=== PATIENT | male | born 1950 | race Caucasian/White ===

== ENCOUNTER 2018-01-09 09:58 | Day surgery (SDC) | payer MEDICARE, BC ==
[~2018-01-09] VITALS: Ht 182.9 cm; Wt 90.6 kg
[2018-01-09] VITALS (7 sets, daily range): BP systolic 112–152; BP diastolic 59–78
[2018-01-09] MEDS ORDERED: sod bicarbonate 150mEq in D5W 1,150 ML IV ONE (10:35)
[2018-01-09] MEDS ORDERED: diphenhydrAMINE 25mg capsule PO PRN (10:35)
[2018-01-09] MEDS ORDERED: FURO-150 PO (10:36)
[2018-01-09] MEDS ORDERED: LISI10TA4 PO (10:36)
[2018-01-09] MEDS ORDERED: TRAM300C3 PO (10:36)
[2018-01-09] MEDS ORDERED: ASPI-1265 PO (10:36)
[2018-01-09] MEDS ORDERED: CARV-50 PO (10:36)
[2018-01-09] MEDS ORDERED: PREG150C PO (10:36)
[2018-01-09] MEDS ORDERED: ATOR40TA PO (10:36)
[2018-01-09] MEDS ORDERED: CLOP75TA35 PO (10:36)
[2018-01-09] MEDS ORDERED: TEMA30CA PO (10:36)
[2018-01-09] MEDS ORDERED: POTA10TA19 PO (10:36)
[2018-01-09 11:23] LABS: BASOPHILS # (AUTO) 0.1 X10'3 (0-0.2); BASOPHILS % (AUTO) 0.6 % (0-1); EOSINOPHILS # (AUTO) 0.5 X10'3 (0-0.9); EOSINOPHILS % (AUTO) 4.1 % (0-6); HEMATOCRIT 40.7 % (42.0-52.0); HEMOGLOBIN 13.6 g/dl (14.0-17.9); LYMPHOCYTES # (AUTO) 2.2 X10'3 (1.1-4.8); LYMPHOCYTES % (AUTO) 19.4 % (21-51); MEAN CORPUSCULAR HGB CONC 33.3 % (33.0-36.5); MEAN CORPUSCULAR VOLUME 93.1 FL (78-98); MEAN PLATELET VOLUME 8.1 FL (7.4-10.4); MONOCYTES # (AUTO) 0.9 X10'3 (0-0.9); MONOCYTES % (AUTO) 7.6 % (2-12); NEUTROPHILS # (AUTO) 7.6 X10'3 (1.8-7.7); NEUTROPHILS % (AUTO) 68.3 % (42-75); PLATELET COUNT 256 X10'3 (140-440); RED BLOOD COUNT 4.38 X10'6 (4.70-6.10); RED CELL DISTRIBUTION WIDTH 14.7 % (11.5-14.5); WHITE BLOOD COUNT 11.2 X10'3 (4.5-11.0)
[2018-01-09 11:47] LABS: CHLORIDE 106 MMOL/L (99-107); TOTAL CARBON DIOXIDE 25.3 MMOL/L (24-32)
[2018-01-09 11:55] LABS: ALBUMIN 3.3 G/DL (3.4-5.0); ANION GAP 12 (8-16); BLOOD UREA NITROGEN 25 MG/DL (7-18); BUN/CREATININE RATIO 17.9 (5.4-32.0); CALCIUM 8.4 MG/DL (8.5-10.1); GLUCOSE 99 MG/DL (70-104); MAGNESIUM 1.8 MG/DL (1.5-2.4); POTASSIUM 4.5 MMOL/L (3.5-5.1); SODIUM 143 MMOL/L (135-145); eGFR 50 ML/MIN
[2018-01-09] MEDS ORDERED: fentaNYL/PF 50MCG/1 ML 2ML syringe ONE ×2 (12:42→14:00)
[2018-01-09] MEDS ORDERED: vancomycin 1,000mg inj ONE ×2 (12:43→12:57)
[2018-01-09] MEDS ORDERED: midazolam 2 mg/2 ml injection ONE ×3 (12:43→13:51)
[2018-01-09] MEDS ORDERED: cefazolin/dext.iso 2gm/50ml 50 ML IV ONE (12:43)
[2018-01-09] MEDS ORDERED: lidocaine 1%/epinephrine 1:100,000 injection 50ml vial ONE (12:44)
[2018-01-09] MEDS ORDERED: proCHLORperazine 10 MG/2 ml inj ONE (13:54)
[2018-01-09] MEDS ORDERED: iohexol 350 MG/ML 50ML vial IV ONE ×2 (14:16→14:26)
[2018-01-09] MEDS ORDERED: atropine 0.1mg/ml 10ml syringe ONE (14:39)
== END 2018-01-09 18:15 | disposition home or self-care (01) ==
LOC: SSTAY O 09:58
PROVIDERS: ATTEND Internal Medicine Cardiovascular Disease
DX: I25.5 Ischemic cardiomyopathy (principal); I44.7 Left bundle-branch block, unspecified; I25.10 Atherosclerotic heart disease of native coronary artery without angina pectoris; E78.5 Hyperlipidemia, unspecified; I11.0 Hypertensive heart disease with heart failure; I50.9 Heart failure, unspecified; Z87.891 Personal history of nicotine dependence; Z98.52 Vasectomy status; Z98.49 Cataract extraction status, unspecified eye; Z95.5 Presence of coronary angioplasty implant and graft; Z79.891 Long term (current) use of opiate analgesic; Z79.82 Long term (current) use of aspirin; Z79.899 Other long term (current) drug therapy; Z98.890 Other specified postprocedural states; Z82.49 Family history of ischemic heart disease and other diseases of the circulatory system
CPT/HCPCS: 33225; 33249; 36415; 71045; 80048; 83735; 85025; 85610; 93005; 99152; 99153; A4565; C1769; C1777; C1882; C1887; C1898; C1900; J0690; J0780; J2250; J3010; J3370; J3490; Q0163; Q9967; A4620; J0461

== ENCOUNTER 2022-11-25 08:02 | Day surgery (SDC) | payer MEDICARE, BC ==
[~2022-11-25] VITALS: Ht 182.9 cm; Wt 101.4 kg
[2022-11-25] VITALS (10 sets, daily range): BP systolic 113–179; BP diastolic 67–94; PULSE 76–96; RESP 14–16; TEMP 97.8; O2SAT 95–100
[~2022-11-25 08:02] MED LIST: ASPI-1265 PO; ATOR40TA PO; CARV-50 PO; CLOP75TA34 PO; FURO-150 PO; LISI10TA27 PO; POTA-192 PO; PREG150C PO; TEMA30CA PO; TRAM300C3 PO
[2022-11-25] MEDS ORDERED: diphenhydrAMINE 25mg capsule PO PRN (08:30)
[2022-11-25] MEDS ORDERED: normal saline 1,000 ML IV SCH (08:30)
[2022-11-25] MEDS ORDERED: FURO40TA4 PO (08:32)
[2022-11-25] MEDS ORDERED: ROSU40TA22 PO (08:32)
[2022-11-25] MEDS ORDERED: TRAM50TA2 PO (08:32)
[2022-11-25] MEDS ORDERED: PROM25TA14 PO (08:33)
[2022-11-25] MEDS ORDERED: RIVA20TA PO (08:33)
[2022-11-25] MEDS ORDERED: SACU1TAB7 PO (08:33)
[2022-11-25 09:18] LABS: BASOPHILS % (AUTO) 0.2 % (0-1); EOSINOPHILS # (AUTO) 0.6 X10'3 (0-0.9); EOSINOPHILS % (AUTO) 4.9 % (0-6); HEMOGLOBIN 13.6 g/dl (14.0-17.9); LYMPHOCYTES # (AUTO) 3.7 X10'3 (1.1-4.8); LYMPHOCYTES % (AUTO) 33.1 % (21-51); MEAN CORPUSCULAR HGB CONC 33.2 g/dL (33.0-36.5); MEAN CORPUSCULAR VOLUME 90.3 FL (78-98); MEAN PLATELET VOLUME 7.7 FL (7.4-10.4); MONOCYTES # (AUTO) 1.3 X10'3 (0-0.9); MONOCYTES % (AUTO) 11.4 % (2-12); NEUTROPHILS # (AUTO) 5.6 X10'3 (1.8-7.7); NEUTROPHILS % (AUTO) 50.4 % (42-75); PLATELET COUNT 292 X10'3 (140-440); RED BLOOD COUNT 4.54 X10'6 (4.70-6.10); RED CELL DISTRIBUTION WIDTH 16.3 % (11.5-14.5); WHITE BLOOD COUNT 11.2 X10'3 (4.5-11.0)
[2022-11-25 09:26] LABS: INR 0.9 INR; PROTHROMBIN TIME 10.1 SECONDS (9.0-12.0)
[2022-11-25 10:28] LABS: ALBUMIN 3.1 G/DL (3.4-5.0); ANION GAP 7 (8-16); BLOOD UREA NITROGEN 13 MG/DL (7-18); BUN/CREATININE RATIO 11.3 (10.0-20.0); CALCIUM 8.9 MG/DL (8.5-10.1); CHLORIDE 106 MMOL/L (99-107); CREATININE 1.15 MG/DL (0.60-1.10); GLUCOSE 99 MG/DL (70-104); MAGNESIUM 2.1 MG/DL (1.5-2.4); POTASSIUM 4.2 MMOL/L (3.5-5.1); SODIUM 140 MMOL/L (135-145); TOTAL CARBON DIOXIDE 26.8 MMOL/L (24-32); eCRCL 63 ML/MIN; eGFR 62 ML/MIN
[2022-11-25] MEDS ORDERED: iohexol 350 MG/ML 50ML vial IV ONE (10:47)
[2022-11-25] MEDS ORDERED: midazolam 1 mg/ML 2ml injection ONE ×2 (10:47→11:25)
[2022-11-25] MEDS ORDERED: heparin 1,000unit/ml 10ml vial 10 ML ONE (10:47)
[2022-11-25] MEDS ORDERED: LIDOcaine 1% (10mg/ml)w/preservative inj. 20ml MDV ONE (10:47)
[2022-11-25] MEDS ORDERED: fentaNYL/PF 50MCG/1 ML 2ML syringe ONE (10:47)
[2022-11-25] MEDS ORDERED: iohexol 350MG/ML 100ml bottle IV ONE ×2 (10:48→11:46)
[2022-11-25] MEDS ORDERED: verapamil 2.5 mg/ml inj IV ONE (10:53)
[2022-11-25] MEDS ORDERED: nitroGLYCERIN 500mcg/5mL D5W 5 ML IV ONE (10:55)
[2022-11-25] MEDS ORDERED: proCHLORperazine 10 MG/2 ml inj ONE (11:49)
[2022-11-25] MEDS ORDERED: protamine sulfate 10mg/ml inj. ONE (12:28)
[2022-11-25] MEDS ORDERED: hydrALAZINE 20mg/ml inj. IV ONE (12:35)
[2022-11-25] MEDS ORDERED: enalaprilat dihydrate 2.5mg/2ml vial IV ONE ×2 (12:38→12:44)
[2022-11-25] MEDS ORDERED: clopidogrel 300mg tablet ONE (12:58)
[2022-11-25] MEDS ORDERED: HYDROcodone/acetaminophen 10/325mg tab PO PRN (13:25)
[2022-11-25] MEDS ORDERED: proCHLORperazine 10 MG/2 ml inj IV PRN (13:25)
[2022-11-25] MEDS ORDERED: HYDROcodone/acetaminophen 5mg/325mg tablet PO PRN (13:25)
[2022-11-25] MEDS ORDERED: ondansetron/PF 4mg/2ml inj IV PRN (13:25)
[2022-11-25] MEDS ORDERED: normal saline 1000ml 1,000 ML IV SCH (13:25)
[2022-11-25] MEDS ORDERED: cloNIDine 0.1 mg tablet PO ONE (13:50)
== END 2022-11-25 17:10 | disposition home or self-care (01) ==
LOC: SSTAY O 08:02
PROVIDERS: ATTEND Internal Medicine Cardiovascular Disease
DX: I25.118 Atherosclerotic heart disease of native coronary artery with other forms of angina pectoris (principal); I25.5 Ischemic cardiomyopathy; I44.7 Left bundle-branch block, unspecified; E78.5 Hyperlipidemia, unspecified; I10 Essential (primary) hypertension; Z95.810 Presence of automatic (implantable) cardiac defibrillator; Z95.5 Presence of coronary angioplasty implant and graft; Z79.01 Long term (current) use of anticoagulants; Z79.899 Other long term (current) drug therapy
CPT/HCPCS: 36415; 80048; 83735; 85025; 85610; 93005; 93308; 93458; 99152; 99153; C1874; C9600; J0360; J0780; J1644; J2250; J2720; J3010; J3490; J7030; Q0163; Q9967; A6258; A6449; C1725; C1751; C1760; C1769; C1892; C1894

== ENCOUNTER 2023-12-01 06:41 | Day surgery (SDC) | payer MEDICARE, BC ==
[~2023-12-01] VITALS: Ht 182.9 cm; Wt 100.9 kg
[2023-12-01] VITALS (10 sets, daily range): BP systolic 112–154; BP diastolic 59–78; PULSE 60–64; RESP 14–16; TEMP 97.9; O2SAT 94–98
[~2023-12-01 06:41] MED LIST changes: -ATOR40TA PO; +DIPH25CA83 PO; -FURO-150 PO; +FURO40TA4 PO; +HYDR-3972 PO; +KETO15CR2 TOP; -LISI10TA27 PO; +MELA10TA2 PO; +PROM25TA14 PO; +RIVA20TA PO; +ROSU40TA71 PO; +SACU1TAB7 PO; -TEMA30CA PO; -TRAM300C3 PO; +TRAM50TA2 PO
[2023-12-01 07:46] LABS: BASOPHILS # (AUTO) 0.1 X10'3 (0-0.2); BASOPHILS % (AUTO) 0.6 % (0-1); EOSINOPHILS # (AUTO) 0.9 X10'3 (0-0.9); EOSINOPHILS % (AUTO) 8.8 % (0-6); HEMATOCRIT 37.9 % (42.0-52.0); HEMOGLOBIN 12.4 g/dl (14.0-17.9); LYMPHOCYTES # (AUTO) 2.9 X10'3 (1.1-4.8); LYMPHOCYTES % (AUTO) 29.3 % (21-51); MEAN CORPUSCULAR HEMOGLOBIN 29.1 PG (27.0-31.0); MEAN CORPUSCULAR HGB CONC 32.7 g/dL (33.0-36.5); MEAN PLATELET VOLUME 7.8 FL (7.4-10.4); MONOCYTES % (AUTO) 9.7 % (2-12); NEUTROPHILS % (AUTO) 51.6 % (42-75); PLATELET COUNT 308 X10'3 (140-440); RED BLOOD COUNT 4.26 X10'6 (4.70-6.10); RED CELL DISTRIBUTION WIDTH 15.4 % (11.5-14.5); WHITE BLOOD COUNT 9.8 X10'3 (4.5-11.0)
[2023-12-01] MEDS: sodium bicarbonate 1meq/ml syr 150 ML in dextrose 5%-water 1,000 ML IV ONE (07:58)
[2023-12-01] MEDS: diphenhydrAMINE 25mg capsule PO PRN (07:58)
[2023-12-01] MEDS: normal saline 1,000 ML IV SCH (07:58)
[2023-12-01 08:25] LABS: PROTHROMBIN TIME 10.6 SECONDS (9.0-12.0)
[2023-12-01 08:26] LABS: ALBUMIN 3.1 G/DL (3.4-5.0); ANION GAP 13 (8-16); BLOOD UREA NITROGEN 19 MG/DL (7-18); BUN/CREATININE RATIO 11.4 (10.0-20.0); CALCIUM 8.7 MG/DL (8.5-10.1); CHLORIDE 108 MMOL/L (99-107); CREATININE 1.67 MG/DL (0.60-1.10); GLUCOSE 91 MG/DL (70-104); POTASSIUM 3.8 MMOL/L (3.5-5.1); SODIUM 145 MMOL/L (135-145); TOTAL CARBON DIOXIDE 23.6 MMOL/L (24-32); eCRCL 43 ML/MIN; eGFR 40 ML/MIN
[2023-12-01] MEDS ORDERED: LIDOcaine 1% (10mg/ml) 2ml vial ONE (08:39)
[2023-12-01] MEDS ORDERED: verapamil 2.5 mg/ml inj IV ONE (08:40)
[2023-12-01] MEDS ORDERED: fentaNYL/PF 50MCG/1 ML 2ML syringe ONE (08:40)
[2023-12-01] MEDS ORDERED: heparin 1,000unit/ml 10ml vial 10 ML ONE (08:40)
[2023-12-01] MEDS ORDERED: midazolam 1 mg/ML 2ml injection ONE ×2 (08:40→09:43)
[2023-12-01] MEDS ORDERED: iohexol 350 MG/ML 50ML vial IV ONE (08:40)
[2023-12-01] MEDS ORDERED: iohexol 350MG/ML 100ml bottle IV ONE (08:40)
[2023-12-01] MEDS ORDERED: nitroGLYCERIN 500mcg/5mL D5W 5 ML IV ONE (08:41)
[2023-12-01] MEDS ORDERED: LIDOcaine 1% 30ml preserv. free vial ONE (09:02)
== END 2023-12-01 13:55 | disposition home or self-care (01) ==
LOC: SSTAY O 06:41
PROVIDERS: ATTEND Internal Medicine Cardiovascular Disease
DX: I25.118 Atherosclerotic heart disease of native coronary artery with other forms of angina pectoris (principal); I10 Essential (primary) hypertension; E78.5 Hyperlipidemia, unspecified; I25.5 Ischemic cardiomyopathy; Z79.01 Long term (current) use of anticoagulants; Z79.02 Long term (current) use of antithrombotics/antiplatelets; Z79.899 Other long term (current) drug therapy; Z98.49 Cataract extraction status, unspecified eye; Z95.810 Presence of automatic (implantable) cardiac defibrillator; Z98.890 Other specified postprocedural states
CPT/HCPCS: 36415; 80048; 83735; 85025; 85610; 93005; 93458; 99152; 99153; A6258; A6402; C1725; C1894; J1644; J2001; J2250; J3010; J3490; J7030; J7070; Q0163; Q9967; Z7610

== ENCOUNTER 2024-01-19 08:57 | Day surgery (SDC) | payer MEDICARE, BC ==
[~2024-01-19] VITALS: Ht 182.9 cm; Wt 100.7 kg
[2024-01-19] VITALS (8 sets, daily range): BP systolic 133–164; BP diastolic 59–91; PULSE 65–94; RESP 16–18; TEMP 97.6; O2SAT 94–97
[~2024-01-19 08:57] MED LIST changes: -ASPI-1265 PO; -DIPH25CA83 PO; -HYDR-3972 PO; -KETO15CR2 TOP; -MELA10TA2 PO; -POTA-192 PO; -ROSU40TA71 PO; +ROSU40TA89 PO
[2024-01-19 09:55] LABS: BASOPHILS # (AUTO) 0.1 X10'3 (0-0.2); BASOPHILS % (AUTO) 0.8 % (0-1); EOSINOPHILS # (AUTO) 0.6 X10'3 (0-0.9); EOSINOPHILS % (AUTO) 8.3 % (0-6); HEMATOCRIT 36.8 % (42.0-52.0); HEMOGLOBIN 12.4 g/dl (14.0-17.9); LYMPHOCYTES # (AUTO) 2.1 X10'3 (1.1-4.8); LYMPHOCYTES % (AUTO) 27.1 % (21-51); MEAN CORPUSCULAR HEMOGLOBIN 29.8 PG (27.0-31.0); MEAN CORPUSCULAR HGB CONC 33.7 g/dL (33.0-36.5); MEAN CORPUSCULAR VOLUME 88.6 FL (78-98); MEAN PLATELET VOLUME 7.4 FL (7.4-10.4); MONOCYTES # (AUTO) 0.8 X10'3 (0-0.9); NEUTROPHILS # (AUTO) 4.2 X10'3 (1.8-7.7); NEUTROPHILS % (AUTO) 53.8 % (42-75); PLATELET COUNT 271 X10'3 (140-440); RED BLOOD COUNT 4.16 X10'6 (4.70-6.10); RED CELL DISTRIBUTION WIDTH 15.8 % (11.5-14.5); WHITE BLOOD COUNT 7.7 X10'3 (4.5-11.0)
[2024-01-19] MEDS ORDERED: ceFAZolin 2gm in dextrose, iso 50 ML IV ONE (09:55)
[2024-01-19 10:10] LABS: ALBUMIN 3.1 G/DL (3.4-5.0); ANION GAP 9 (8-16); BLOOD UREA NITROGEN 25 MG/DL (7-18); BUN/CREATININE RATIO 15.4 (10.0-20.0); CALCIUM 8.4 MG/DL (8.5-10.1); CHLORIDE 109 MMOL/L (99-107); CREATININE 1.62 MG/DL (0.60-1.10); GLUCOSE 130 MG/DL (70-104); MAGNESIUM 2.1 MG/DL (1.5-2.4); POTASSIUM 3.6 MMOL/L (3.5-5.1); SODIUM 142 MMOL/L (135-145); TOTAL CARBON DIOXIDE 24.2 MMOL/L (24-32); eCRCL 44 ML/MIN; eGFR 42 ML/MIN
[2024-01-19] MEDS: normal saline 1000ml 1,000 ML IV SCH (10:14)
[2024-01-19] MEDS: vancomycin 1,500 MG in NS 300ml IV soln IV ONE (10:15)
[2024-01-19] MEDS ORDERED: atropine 0.1mg/ml 10ml syringe ONE (16:14)
[2024-01-19] MEDS ORDERED: iohexol 350MG/ML 100ml bottle IV ONE (16:14)
[2024-01-19] MEDS ORDERED: heparin 1,000unit/ml 10ml vial 0 ML ONE (16:14)
[2024-01-19] MEDS ORDERED: phenylephrine 10mg/ml inj. -priapism dosing ONE (16:14)
[2024-01-19] MEDS ORDERED: DOPamine 400mg/D5W 250ml 0 ML IV ONE (16:15)
[2024-01-19] MEDS ORDERED: heparin 1,000 UNITS/NS 500ml 0 ML ONE (16:15)
[2024-01-19] MEDS ORDERED: LIDOcaine 1% 30ml preserv. free vial ONE (16:17)
[2024-01-19] MEDS ORDERED: fentaNYL/PF 50MCG/1 ML 2ML syringe ONE (16:40)
[2024-01-19] MEDS ORDERED: midazolam 1 mg/ML 2ml injection ONE ×2 (16:40→17:21)
[2024-01-19] MEDS ORDERED: vancomycin 1,000mg inj ONE (16:41)
[2024-01-19] MEDS ORDERED: LIDOcaine 1% w/EPI 1:100,000 inj. MDV 50 ML VIAL ONE (16:41)
== END 2024-01-19 19:40 | disposition home or self-care (01) ==
LOC: SSTAY O 08:57
PROVIDERS: ATTEND Internal Medicine Cardiovascular Disease
DX: T82.111A Breakdown (mechanical) of cardiac pulse generator (battery), initial encounter (principal); I10 Essential (primary) hypertension; I25.118 Atherosclerotic heart disease of native coronary artery with other forms of angina pectoris; E78.5 Hyperlipidemia, unspecified; I25.5 Ischemic cardiomyopathy; Z79.01 Long term (current) use of anticoagulants; Z79.02 Long term (current) use of antithrombotics/antiplatelets; Z79.899 Other long term (current) drug therapy; Z95.5 Presence of coronary angioplasty implant and graft; Z98.49 Cataract extraction status, unspecified eye; Z98.890 Other specified postprocedural states; Z82.49 Family history of ischemic heart disease and other diseases of the circulatory system; Y71.2 Prosthetic and other implants, materials and accessory cardiovascular devices associated with adverse incidents; Y92.89 Other specified places as the place of occurrence of the external cause
CPT/HCPCS: 33264; 36415; 80048; 83735; 85025; 85610; 93005; 99152; 99153; C1882; J2250; J3010; J3370; J3372; J3490; J7030; Z7610; 33229; J0461; J1265; J1644; J2370; Q9967